=== PATIENT | male | born 1995 | race Caucasian/White ===

== ENCOUNTER 2017-12-26 06:30 | Emergency (ER) | payer OTHER ==
[~2017-12-26] VITALS: Ht 175.3 cm; Wt 59.0 kg
[2017-12-26 06:35] VITALS: BP_SYST 122
[2017-12-26 07:45] VITALS: BP_SYST 122
== END 2017-12-26 07:45 ==
LOC: SED 06:30
DX: Z04.1 Encounter for examination and observation following transport accident (principal); V89.2XXA Person injured in unspecified motor-vehicle accident, traffic, initial encounter; Y93.89 Activity, other specified; Y92.410 Unspecified street and highway as the place of occurrence of the external cause; Y99.8 Other external cause status
CPT/HCPCS: 99283